=== PATIENT | female | born 1960 | race African-American/Black ===

== ENCOUNTER 2018-09-24 04:52 | Inpatient (IN) | payer MEDICARE, OTHER ==
[~2018-09-24] VITALS: Ht 165.1 cm; Wt 69.9 kg
[2018-09-24] MEDS ORDERED: ASPIRIN 81MG TABLET PO ONE ×2 (05:30→06:30)
[2018-09-24] MEDS ORDERED: ONDANSETRON HCL 4MG/2ML INJ IV ONE ×2 (06:30→08:45)
[2018-09-24 07:00] LABS: CHLORIDE 95 mEq/L (98-107)
[2018-09-24 07:01] LABS: INR 1.2; PARTIAL THROMBOPLASTIN TIME 20.6 sec (23.4-31.0); PROTHROMBIN TIME 11.6 sec (9.1-11.1)
[2018-09-24] MEDS ORDERED: FENTANYL CITRATE/PF 50MCG/ML 2ML VIAL IV ONE (07:15)
[2018-09-24] MEDS ORDERED: CLONIDINE 0.2MG TABLET PO ONE (07:45)
[2018-09-24 08:01] LABS: BASOPHILS % 0.6 % (0.0-2.0); EOSINOPHILS % 0.3 % (0.0-5.0); HEMATOCRIT. 44.6 % (36.0-48.0); LYMPHOCYTES % 9.1 % (20.0-50.0); MEAN CORPUSCULAR HEMOGLOBIN 30.8 pg (28.0-32.0); MEAN CORPUSCULAR VOLUME 91.7 fL (81.0-99.0); MONOCYTES % 4.3 % (2.0-8.0); NEUTROPHILS % 85.7 % (40.0-76.0); PLATELET 321 x1000/uL (130-400); RED BLOOD CELL COUNT 4.87 mill/uL (4.2-5.4); RED CELL DISTRIBUTION WIDTH 16.2 % (11.6-14.6)
[2018-09-24] MEDS ORDERED: HYDROMORPHONE HCL/PF 2MG/ML CPJ IV PRN (10:30)
[2018-09-24] MEDS ORDERED: NA PHOS,M-B/NA PHOS,DI-BA ENEMA 118ML PR PRN (10:30)
[2018-09-24] MEDS ORDERED: MAGNESIUM/ALUMINUM HYDROXIDE/SIMETHICONE 30ML UDC PO PRN (10:30)
[2018-09-24] MEDS ORDERED: ONDANSETRON HCL 4MG/2ML INJ IV PRN (10:30)
[2018-09-24] MEDS ORDERED: ACETAMINOPHEN 325MG TABLET PO PRN (10:30)
[2018-09-24] MEDS ORDERED: DIPHENHYDRAMINE 50MG/ML VIAL IV PRN (10:30)
[2018-09-24] MEDS ORDERED: HYDROCODONE/ACETAMINOPHEN 5/325MG TABLET PO PRN (10:30)
[2018-09-24] MEDS ORDERED: CLONIDINE 0.1MG TABLET PO PRN (10:30)
[2018-09-24] MEDS ORDERED: LORAZEPAM 2MG/ML CPJ IV PRN (10:30)
[2018-09-24] MEDS ORDERED: LOSARTAN POTASSIUM 100 MG TABLET PO SCH (11:00)
[2018-09-24] MEDS ORDERED: NIFEDIPINE XL 60MG TAB PO SCH (11:00)
[2018-09-24 11:15] VITALS: BP 159/84
[2018-09-24] MEDS ORDERED: DEXTROSE 50% WATER 50ML SYRINGE IV PRN (11:45)
[2018-09-24 11:58] VITALS: BP 159/84
[2018-09-24] MEDS: BLOOD SUGAR DIAGNOSTIC STRIP TEST SCH ×3 (12:58→21:01)
[2018-09-24] MEDS: INSULIN LISPRO 100 UNITS/ML SUBCUT SCH ×3 (13:03→21:00)
[2018-09-24] MEDS: CLONIDINE 0.1MG TABLET PO SCH ×2 (14:33→21:06)
[2018-09-24] MEDS: HYDRALAZINE HCL 50MG TABLET PO SCH ×2 (14:33→21:06)
[2018-09-24] MEDS ORDERED: CALC667C MT (15:06)
[2018-09-24] MEDS ORDERED: SEVE800T8 MT (15:06)
[2018-09-24] MEDS ORDERED: SERT-112 MT (15:14)
[2018-09-24] MEDS ORDERED: FURO80TA3 MT (15:14)
[2018-09-24] MEDS ORDERED: BUME2TAB3 MT (15:14)
[2018-09-24] MEDS ORDERED: HYDR-4135 MT (15:14)
[2018-09-24] MEDS ORDERED: LEVO100T9 MT (15:14)
[2018-09-24] MEDS ORDERED: BRIM5DRO6 EACHEYE (15:14)
[2018-09-24] MEDS ORDERED: FAMO20TA8 MT (15:14)
[2018-09-24] MEDS ORDERED: TIOT4MIS3 IH (15:14)
[2018-09-24] MEDS ORDERED: ATOR40TA70 MT (15:14)
[2018-09-24] MEDS ORDERED: PRED5DRO22 OP (15:23)
[2018-09-24] MEDS ORDERED: KETO5DRO80 LEFTEYE (15:23)
[2018-09-24] MEDS ORDERED: OFLO5DRO3 LEFTEYE (15:23)
[2018-09-24 16:12] LABS: HEPATITIS B SURFACE ANTIGEN NEGATIVE
[2018-09-24 16:31] VITALS: BP 108/51
[2018-09-24 16:41] LABS: HEPATITIS A AB IGM NEGATIVE (NEGATIVE)
[2018-09-24 20:32] VITALS: BP 123/72
[2018-09-25 00:45] VITALS: BP 115/55
[2018-09-25 04:00] VITALS: BP 105/98
[2018-09-25] MEDS: HYDRALAZINE HCL 50MG TABLET PO SCH (05:33)
[2018-09-25] MEDS: CLONIDINE 0.1MG TABLET PO SCH (05:34)
[2018-09-25 06:53] LABS: EOSINOPHILS % 0.4 % (0.0-5.0); HEMATOCRIT. 39.7 % (36.0-48.0); HEMOGLOBIN. 13.4 g/dL (12.0-16.0); LYMPHOCYTES % 13.2 % (20.0-50.0); MEAN CORPUSCULAR VOLUME 91.7 fL (81.0-99.0); MEAN PLATELET VOLUME 7.7 fl (7.4-10.4); MONOCYTES % 8.1 % (2.0-8.0); NEUTROPHILS % 77.3 % (40.0-76.0); PLATELET 297 x1000/uL (130-400); RED BLOOD CELL COUNT 4.33 mill/uL (4.2-5.4); RED CELL DISTRIBUTION WIDTH 15.8 % (11.6-14.6)
[2018-09-25 07:15] LABS: CHLORIDE 97 mEq/L (98-107)
[2018-09-25 07:26] LABS: LDL CHOLESTEROL 40 mg/dL (5-100)
[2018-09-25 07:27] LABS: HDL CHOLESTEROL 56 mg/dL (40-59); T4 FREE 0.58 ng/dL (0.76-1.46)
[2018-09-25 08:21] VITALS: BP 118/62
[2018-09-25] MEDS ORDERED: ASPIRIN 81MG EC TABLET PO SCH (09:00)
== END 2018-09-25 08:40 | disposition left against medical advice (07) | DRG 70 ==
LOC: ER 04:52 → 6WST 06:47 → EDBEDREQ 08:59 → ENRESERV 09:53
PROVIDERS: ADMIT Internal Medicine; ATTEND Internal Medicine
DX: G93.41 Metabolic encephalopathy (principal); N18.6 End stage renal disease; I13.2 Hypertensive heart and chronic kidney disease with heart failure and with stage 5 chronic kidney disease, or end stage renal disease; E46 Unspecified protein-calorie malnutrition; R10.9 Unspecified abdominal pain; R53.1 Weakness; R07.89 Other chest pain; D64.9 Anemia, unspecified; E11.22 Type 2 diabetes mellitus with diabetic chronic kidney disease; Z53.21 Procedure and treatment not carried out due to patient leaving prior to being seen by health care provider; E11.65 Type 2 diabetes mellitus with hyperglycemia; R74.0 Nonspecific elevation of levels of transaminase and lactic acid dehydrogenase [LDH]; F17.200 Nicotine dependence, unspecified, uncomplicated; I25.10 Atherosclerotic heart disease of native coronary artery without angina pectoris; Z99.2 Dependence on renal dialysis; I50.9 Heart failure, unspecified; Z88.2 Allergy status to sulfonamides; Z88.8 Allergy status to other drugs, medicaments and biological substances; Z91.041 Radiographic dye allergy status; Z90.49 Acquired absence of other specified parts of digestive tract; Z68.25 Body mass index [BMI] 25.0-25.9, adult
CPT/HCPCS: 36415; 71045; 76705; 80048; 80061; 82962; 83036; 83735; 83880; 84439; 84443; 84484; 86705; 86709; 86803; 87340; 93005; 96374; 96375; 96376; 99285; J1815; J2405; J3010

== ENCOUNTER 2018-12-08 18:03 | Inpatient (IN) | payer OTHER, MEDICARE, MEDICAID ==
[~2018-12-08] VITALS: Ht 167.6 cm; Wt 64.4 kg
[~2018-12-08 18:03] MED LIST: ATOR40TA70 MT; BRIM5DRO6 EACHEYE; BUME2TAB3 MT; CALC667C MT; FAMO20TA8 MT; FURO80TA3 MT; HYDR-4135 MT; KETO5DRO80 LEFTEYE; LEVO100T9 MT; OFLO5DRO3 LEFTEYE; PRED5DRO22 OP; SERT-112 MT; SEVE800T8 MT; TIOT4MIS3 IH
[2018-12-08] MEDS ORDERED: HYDRALAZINE 20MG/ML VIAL IV ONE (20:30)
[2018-12-08] MEDS ORDERED: LORAZEPAM 2MG/ML CPJ IV ONE ×2 (21:45→23:30)
[2018-12-08 21:59] LABS: BG BASE EXCESS 14.3 mmol/L (-2.0-2.0); BG CARBOXYHEMOGLOBIN 2.8 % (0.5-1.5); BG DEOXYHEMOGLOBIN 10.5 % (0.0-5.0); BG FRACTION INSPIRED OXYGEN 21; BG HCO3 ACT 37.8 mmol/L (22.0-26.0); BG METHEMOGLOBIN 0.2 % (0.0-1.5); BG OXYGEN SATURATION 89.2 % (92.0-98.5); BG OXYHEMOGLOBIN 86.5 % (94.0-97.0); BG PCO2 41.9 mmHg (35.0-45.0); BG PH 7.573 (7.350-7.450); BG PO2 56.8 mmHg (75.0-100.0); BG SAMPLE SITE RIGHT RADIAL; BG TOTAL HEMOGLOBIN 14.5 g/dL (12.0-18.0); BG VENT MODE ROOM AIR
[2018-12-08 22:17] LABS: BASOPHILS % 0.6 % (0.0-2.0); HEMATOCRIT. 46.2 % (36.0-48.0); HEMOGLOBIN. 14.9 g/dL (12.0-16.0); LYMPHOCYTES % 7.2 % (20.0-50.0); MEAN PLATELET VOLUME 9.4 fl (7.4-10.4); NEUTROPHILS % 87.2 % (40.0-76.0); PLATELET 276 x1000/uL (130-400); RED BLOOD CELL COUNT 4.97 mill/uL (4.2-5.4); RED CELL DISTRIBUTION WIDTH 18.3 % (11.6-14.6)
[2018-12-08 22:24] LABS: CHLORIDE 84 mEq/L (98-107); INR 1.5; PARTIAL THROMBOPLASTIN TIME 21.2 sec (23.4-31.0)
[2018-12-08 22:28] LABS: ETHANOL BLOOD < 10 mg/dL
[2018-12-08 22:29] LABS: PHOSPHORUS 6.5 mg/dL (2.5-4.9)
[2018-12-09] VITALS (7 sets, daily range): BP systolic 175–193; BP diastolic 96–115
[2018-12-09] MEDS ORDERED: LORAZEPAM 2MG/ML CPJ IV ONE ×2 (00:15→00:45)
[2018-12-09] MEDS ORDERED: OLANZAPINE 10 MG/VIAL IM ONE (00:30)
[2018-12-09] MEDS ORDERED: LABETALOL 5MG/ML SYR 20 MG/4 ML SYRINGE IV ONE (01:45)
[2018-12-09 02:05] LABS: CLARITY URINE CLEAR (CLEAR); COLOR URINE YELLOW (YELLOW); KETONES URINE NEGATIVE (NEGATIVE); LEUKOCYTE ESTERASE URINE NEGATIVE (NEGATIVE); NITRITE URINE NEGATIVE (NEGATIVE); OCCULT BLOOD URINE 1+ (NEGATIVE); PH URINE >=9.0 (4.5-8.0); PROTEIN URINE 3+ (NEGATIVE); SPECIFIC GRAVITY URINE 1.013 (1.005-1.030)
[2018-12-09 02:15] LABS: *AMPHETAMINES SCREEN URINE NEGATIVE (NEGATIVE); *BARBITURATES SCREEN URINE NEGATIVE (NEGATIVE); *BENZODIAZEPINES SCREEN URINE NEGATIVE (NEGATIVE); *COCAINE SCREEN URINE NEGATIVE (NEGATIVE); CANNABINOID URINE SCREEN NEGATIVE (NEGATIVE); METHADONE URINE SCREEN NEGATIVE (NEGATIVE); OPIATES URINE SCREEN NEGATIVE (NEGATIVE); PHENCYCLIDINE URINE SCREEN NEGATIVE (NEGATIVE)
[2018-12-09] MEDS ORDERED: HYDR-4135 MT (06:18)
[2018-12-09] MEDS ORDERED: CARV3.1242 MT (06:18)
[2018-12-09] MEDS ORDERED: AMLO10TA80 MT (06:18)
[2018-12-09] MEDS ORDERED: LOPE2CAP MT (06:18)
[2018-12-09] MEDS ORDERED: HYDRALAZINE 20MG/ML VIAL IV NR (09:45)
[2018-12-09] MEDS ORDERED: HYDROCODONE/ACETAMINOPHEN 10/325MG TABLET PO PRN (10:15)
[2018-12-09] MEDS ORDERED: ACETAMINOPHEN 325MG TABLET PO PRN (10:15)
[2018-12-09] MEDS ORDERED: HYDROMORPHONE HCL/PF 2MG/ML CPJ IV PRN (10:15)
[2018-12-09] MEDS ORDERED: DOCUSATE SODIUM 100MG CAPSULE PO PRN (10:15)
[2018-12-09] MEDS ORDERED: ONDANSETRON HCL 4MG/2ML INJ IV PRN (10:15)
[2018-12-09] MEDS ORDERED: CLONIDINE 0.1MG TABLET PO PRN (10:15)
[2018-12-09] MEDS ORDERED: MAGNESIUM/ALUMINUM HYDROXIDE/SIMETHICONE 30ML UDC PO PRN (10:15)
[2018-12-09] MEDS: HYDRALAZINE 20MG/ML VIAL IV PRN ×3 (11:57→18:10)
[2018-12-09] MEDS: ASPIRIN 81MG EC TABLET PO SCH (12:00)
[2018-12-09] MEDS ORDERED: IPRATROPIUM/ALBUTEROL 0.5-3(2.5)MG/3ML NEB INH PRN (12:00)
[2018-12-09] MEDS: ENOXAPARIN 30MG/0.3ML SYR SUBCUT SCH (13:26)
[2018-12-09] MEDS: SODIUM CHLORIDE 0.9% INJ 3ML FLUSH IVF SCH ×2 (13:26→21:38)
[2018-12-09 16:52] LABS: CREATINE KINASE MB FRACTION 2.5 ng/mL (0.5-3.6)
[2018-12-09] MEDS: LACTULOSE 20G/30ML UDC PO SCH ×2 (17:01→23:41)
[2018-12-09] MEDS: DIPHENHYDRAMINE 50MG/ML VIAL IV PRN (21:35)
[2018-12-09 23:22] LABS: CREATINE KINASE MB FRACTION 2.5 ng/mL (0.5-3.6)
[2018-12-09] MEDS: AMLODIPINE 10MG TABLET PO SCH (23:40)
[2018-12-09] MEDS: CLONIDINE 0.3MG TABLET PO PRN (23:40)
[2018-12-10] VITALS (10 sets, daily range): BP systolic 109–181; BP diastolic 67–96
[2018-12-10] MEDS: SODIUM CHLORIDE 0.9% INJ 3ML FLUSH IVF SCH ×3 (05:40→21:36)
[2018-12-10] MEDS: LACTULOSE 20G/30ML UDC PO SCH ×4 (05:40→23:53)
[2018-12-10] MEDS: GUAIFENESIN 200MG/10ML SUGAR FREE UDC PO PRN (06:16)
[2018-12-10 07:01] LABS: BASOPHILS % 0.8 % (0.0-2.0); EOSINOPHILS % 0.3 % (0.0-5.0); HEMATOCRIT. 42.2 % (36.0-48.0); HEMOGLOBIN. 13.8 g/dL (12.0-16.0); LYMPHOCYTES % 8.8 % (20.0-50.0); MEAN CORPUSCULAR HEMOGLOBIN 30.2 pg (28.0-32.0); MEAN PLATELET VOLUME 8.4 fl (7.4-10.4); MONOCYTES % 6.5 % (2.0-8.0); NEUTROPHILS % 83.6 % (40.0-76.0); PLATELET 231 x1000/uL (130-400); RED BLOOD CELL COUNT 4.58 mill/uL (4.2-5.4); RED CELL DISTRIBUTION WIDTH 17.6 % (11.6-14.6)
[2018-12-10 07:02] LABS: CHLORIDE 90 mEq/L (98-107)
[2018-12-10 07:09] LABS: LDL CHOLESTEROL 50 mg/dL (5-100)
[2018-12-10 07:11] LABS: HDL CHOLESTEROL 24 mg/dL (40-59)
[2018-12-10] MEDS: AMLODIPINE 10MG TABLET PO SCH (08:58)
[2018-12-10] MEDS: ASPIRIN 81MG EC TABLET PO SCH (08:58)
[2018-12-10] MEDS: ENOXAPARIN 30MG/0.3ML SYR SUBCUT SCH (08:58)
[2018-12-10] MEDS: LEVOTHYROXINE SODIUM 50MCG TABLET PO SCH (12:55)
[2018-12-10] MEDS: HYDRALAZINE HCL 50MG TABLET PO SCH ×2 (14:00→21:35)
[2018-12-10] MEDS: IPRATROPIUM/ALBUTEROL 0.5-3(2.5)MG/3ML NEB HHN SCH ×2 (14:50→21:33)
[2018-12-10] MEDS: CARVEDILOL 3.125 MG TABLET PO SCH (21:35)
[2018-12-10] MEDS: DIPHENHYDRAMINE 50MG/ML VIAL IV PRN (23:51)
[2018-12-11] MEDS: IPRATROPIUM/ALBUTEROL 0.5-3(2.5)MG/3ML NEB HHN SCH ×4 (01:54→21:20)
[2018-12-11] MEDS: LACTULOSE 20G/30ML UDC PO SCH ×4 (05:10→23:53)
[2018-12-11] MEDS: SODIUM CHLORIDE 0.9% INJ 3ML FLUSH IVF SCH ×3 (05:10→21:24)
[2018-12-11] MEDS: HYDRALAZINE HCL 50MG TABLET PO SCH ×3 (06:00→21:21)
[2018-12-11 07:29] LABS: BASOPHILS % 0.7 % (0.0-2.0); EOSINOPHILS % 0.7 % (0.0-5.0); HEMATOCRIT. 41.2 % (36.0-48.0); HEMOGLOBIN. 13.2 g/dL (12.0-16.0); LYMPHOCYTES % 9.3 % (20.0-50.0); MEAN CORPUSCULAR HEMOGLOBIN 29.7 pg (28.0-32.0); MEAN CORPUSCULAR VOLUME 93.1 fL (81.0-99.0); MEAN PLATELET VOLUME 8.4 fl (7.4-10.4); MONOCYTES % 6.9 % (2.0-8.0); NEUTROPHILS % 82.4 % (40.0-76.0); PLATELET 204 x1000/uL (130-400); RED BLOOD CELL COUNT 4.43 mill/uL (4.2-5.4); RED CELL DISTRIBUTION WIDTH 17.7 % (11.6-14.6)
[2018-12-11 08:00] VITALS: BP 161/87
[2018-12-11] MEDS: AMLODIPINE 10MG TABLET PO SCH (08:06)
[2018-12-11] MEDS: LEVOTHYROXINE SODIUM 50MCG TABLET PO SCH (08:06)
[2018-12-11] MEDS: ASPIRIN 81MG EC TABLET PO SCH (08:06)
[2018-12-11] MEDS: CARVEDILOL 3.125 MG TABLET PO SCH ×2 (08:07→21:20)
[2018-12-11] MEDS: ENOXAPARIN 30MG/0.3ML SYR SUBCUT SCH (08:07)
[2018-12-11] MEDS ORDERED: POTASSIUM CHLORIDE 20MEQ TABLET SR PO SCH (09:15)
[2018-12-11 12:00] VITALS: BP 134/64
[2018-12-11 16:00] VITALS: BP 154/83
[2018-12-11 20:00] VITALS: BP 150/83
[2018-12-12] VITALS: BP 157/91
[2018-12-12] MEDS: LORAZEPAM 2MG/ML CPJ IV PRN (01:59)
[2018-12-12] MEDS: IPRATROPIUM/ALBUTEROL 0.5-3(2.5)MG/3ML NEB HHN SCH ×5 (02:00→21:15)
[2018-12-12 04:00] VITALS: BP 140/73
[2018-12-12] MEDS: LACTULOSE 20G/30ML UDC PO SCH ×4 (05:20→23:51)
[2018-12-12] MEDS: HYDRALAZINE HCL 50MG TABLET PO SCH ×3 (05:53→21:40)
[2018-12-12] MEDS: SODIUM CHLORIDE 0.9% INJ 3ML FLUSH IVF SCH ×3 (05:53→21:42)
[2018-12-12 08:00] VITALS: BP 156/88
[2018-12-12] MEDS: AMLODIPINE 10MG TABLET PO SCH (08:16)
[2018-12-12] MEDS: CARVEDILOL 3.125 MG TABLET PO SCH ×2 (08:16→21:40)
[2018-12-12] MEDS: ASPIRIN 81MG EC TABLET PO SCH (08:17)
[2018-12-12] MEDS: ENOXAPARIN 30MG/0.3ML SYR SUBCUT SCH (08:17)
[2018-12-12] MEDS: LEVOTHYROXINE SODIUM 50MCG TABLET PO SCH (08:17)
[2018-12-12 08:54] LABS: BASOPHILS % 0.8 % (0.0-2.0); EOSINOPHILS % 1.1 % (0.0-5.0); HEMATOCRIT. 41.4 % (36.0-48.0); HEMOGLOBIN. 13.5 g/dL (12.0-16.0); LYMPHOCYTES % 8.6 % (20.0-50.0); MEAN CORPUSCULAR HEMOGLOBIN 30.1 pg (28.0-32.0); MEAN CORPUSCULAR VOLUME 92.5 fL (81.0-99.0); MEAN PLATELET VOLUME 8.5 fl (7.4-10.4); MONOCYTES % 7.7 % (2.0-8.0); NEUTROPHILS % 81.8 % (40.0-76.0); PLATELET 218 x1000/uL (130-400); RED BLOOD CELL COUNT 4.47 mill/uL (4.2-5.4); RED CELL DISTRIBUTION WIDTH 18.1 % (11.6-14.6)
[2018-12-12 11:30] VITALS: BP 151/76
[2018-12-12 16:00] VITALS: BP 157/73
[2018-12-12] MEDS: CLONIDINE 0.3MG TABLET PO PRN (16:54)
[2018-12-12 20:00] VITALS: BP 143/82
[2018-12-13] VITALS: BP 153/78
[2018-12-13] MEDS: LORAZEPAM 2MG/ML CPJ IV PRN (01:02)
[2018-12-13] MEDS: IPRATROPIUM/ALBUTEROL 0.5-3(2.5)MG/3ML NEB HHN SCH ×4 (02:30→20:35)
[2018-12-13 04:00] VITALS: BP 132/68
[2018-12-13] MEDS: LACTULOSE 20G/30ML UDC PO SCH ×3 (05:04→17:36)
[2018-12-13] MEDS: HYDRALAZINE HCL 50MG TABLET PO SCH ×3 (06:31→23:00)
[2018-12-13] MEDS: SODIUM CHLORIDE 0.9% INJ 3ML FLUSH IVF SCH ×3 (06:31→22:55)
[2018-12-13 06:51] LABS: EOSINOPHILS % 1.3 % (0.0-5.0); HEMATOCRIT. 40.3 % (36.0-48.0); HEMOGLOBIN. 13.2 g/dL (12.0-16.0); LYMPHOCYTES % 12.8 % (20.0-50.0); MEAN CORPUSCULAR HEMOGLOBIN 30.2 pg (28.0-32.0); MEAN CORPUSCULAR VOLUME 92.4 fL (81.0-99.0); MEAN PLATELET VOLUME 8.5 fl (7.4-10.4); MONOCYTES % 9.4 % (2.0-8.0); NEUTROPHILS % 75.5 % (40.0-76.0); PLATELET 239 x1000/uL (130-400); RED BLOOD CELL COUNT 4.36 mill/uL (4.2-5.4); RED CELL DISTRIBUTION WIDTH 18.2 % (11.6-14.6)
[2018-12-13 08:00] VITALS: BP 138/99
[2018-12-13] MEDS: LEVOTHYROXINE SODIUM 50MCG TABLET PO SCH (08:53)
[2018-12-13] MEDS: CARVEDILOL 3.125 MG TABLET PO SCH ×2 (09:00→20:40)
[2018-12-13] MEDS: ASPIRIN 81MG EC TABLET PO SCH (09:00)
[2018-12-13] MEDS: AMLODIPINE 10MG TABLET PO SCH (09:00)
[2018-12-13] MEDS: ENOXAPARIN 30MG/0.3ML SYR SUBCUT SCH (09:01)
[2018-12-13 12:00] VITALS: BP 154/83
[2018-12-13 16:00] VITALS: BP 154/78
[2018-12-13 20:00] VITALS: BP 154/73
[2018-12-14] VITALS (8 sets, daily range): BP systolic 124–170; BP diastolic 61–89
[2018-12-14] MEDS: LACTULOSE 20G/30ML UDC PO SCH ×4 (00:56→18:00)
[2018-12-14] MEDS: IPRATROPIUM/ALBUTEROL 0.5-3(2.5)MG/3ML NEB HHN SCH ×5 (01:40→20:25)
[2018-12-14] MEDS: HYDRALAZINE 20MG/ML VIAL IV PRN (04:45)
[2018-12-14] MEDS: SODIUM CHLORIDE 0.9% INJ 3ML FLUSH IVF SCH ×3 (06:12→21:50)
[2018-12-14] MEDS: HYDRALAZINE HCL 50MG TABLET PO SCH ×3 (06:12→21:50)
[2018-12-14] MEDS: LEVOTHYROXINE SODIUM 50MCG TABLET PO SCH (08:52)
[2018-12-14] MEDS: CLONIDINE 0.3MG TABLET PO PRN (08:53)
[2018-12-14] MEDS: ASPIRIN 81MG EC TABLET PO SCH (08:54)
[2018-12-14] MEDS: AMLODIPINE 10MG TABLET PO SCH (08:54)
[2018-12-14] MEDS: CARVEDILOL 3.125 MG TABLET PO SCH ×2 (08:54→21:51)
[2018-12-14] MEDS: DIPHENHYDRAMINE 50MG/ML VIAL IV PRN ×2 (08:55→13:26)
[2018-12-14] MEDS: GUAIFENESIN 200MG/10ML SUGAR FREE UDC PO PRN (08:55)
[2018-12-14] MEDS: ENOXAPARIN 30MG/0.3ML SYR SUBCUT SCH (09:05)
[2018-12-14 10:11] LABS: EOSINOPHILS % 0.9 % (0.0-5.0); HEMATOCRIT. 42.8 % (36.0-48.0); HEMOGLOBIN. 14.3 g/dL (12.0-16.0); LYMPHOCYTES % 8.6 % (20.0-50.0); MEAN CORPUSCULAR HEMOGLOBIN 30.5 pg (28.0-32.0); MEAN CORPUSCULAR VOLUME 91.2 fL (81.0-99.0); MEAN PLATELET VOLUME 8.5 fl (7.4-10.4); MONOCYTES % 7.7 % (2.0-8.0); NEUTROPHILS % 81.8 % (40.0-76.0); PLATELET 275 x1000/uL (130-400); RED CELL DISTRIBUTION WIDTH 18.1 % (11.6-14.6)
[2018-12-14] MEDS ORDERED: HYDROCODONE/ACETAMINOPHEN 10/325MG TABLET PO PRN (13:30)
[2018-12-14] MEDS: HYDROMORPHONE HCL/PF 2MG/ML CPJ IV PRN ×2 (16:14→18:24)
[2018-12-15] VITALS: BP 120/62
[2018-12-15] MEDS: LACTULOSE 20G/30ML UDC PO SCH ×3 (00:36→12:16)
[2018-12-15] MEDS: IPRATROPIUM/ALBUTEROL 0.5-3(2.5)MG/3ML NEB HHN SCH ×2 (02:08→08:03)
[2018-12-15 04:03] VITALS: BP 158/84
[2018-12-15 05:25] LABS: BASOPHILS % 0.9 % (0.0-2.0); EOSINOPHILS % 1.8 % (0.0-5.0); HEMATOCRIT. 42.4 % (36.0-48.0); LYMPHOCYTES % 11.1 % (20.0-50.0); MEAN CORPUSCULAR HEMOGLOBIN 30.2 pg (28.0-32.0); MEAN CORPUSCULAR VOLUME 91.2 fL (81.0-99.0); MEAN PLATELET VOLUME 8.4 fl (7.4-10.4); MONOCYTES % 9.4 % (2.0-8.0); NEUTROPHILS % 76.8 % (40.0-76.0); PLATELET 294 x1000/uL (130-400); RED BLOOD CELL COUNT 4.65 mill/uL (4.2-5.4); RED CELL DISTRIBUTION WIDTH 17.9 % (11.6-14.6)
[2018-12-15] MEDS: HYDRALAZINE HCL 50MG TABLET PO SCH (05:52)
[2018-12-15] MEDS: SODIUM CHLORIDE 0.9% INJ 3ML FLUSH IVF SCH (05:52)
[2018-12-15 08:00] VITALS: BP 155/75
[2018-12-15 10:00] VITALS: BP 153/110
[2018-12-15 12:00] VITALS: BP 158/80
[2018-12-15] MEDS: LEVOTHYROXINE SODIUM 50MCG TABLET PO SCH (12:13)
[2018-12-15] MEDS: CARVEDILOL 3.125 MG TABLET PO SCH (12:14)
[2018-12-15] MEDS: ASPIRIN 81MG EC TABLET PO SCH (12:15)
[2018-12-15] MEDS: AMLODIPINE 10MG TABLET PO SCH (12:15)
[2018-12-15] MEDS: ENOXAPARIN 30MG/0.3ML SYR SUBCUT SCH (12:16)
[2018-12-15 13:01] VITALS: BP 159/78
== END 2018-12-15 13:30 | disposition home or self-care (01) | DRG 91 ==
LOC: ER 18:14 → 5EST 12-09 01:05 → EDBEDREQ 12-09 01:25 → EDBEDREQDT 12-09 01:25 → EDBEDREQTM 12-09 01:25 → EDBEDREQSVC 12-09 01:25 → ENRESERV 12-09 07:57
PROVIDERS: ADMIT Internal Medicine; ATTEND Internal Medicine
PROC: 5A1D70Z Performance of Urinary Filtration, Intermittent, Less than 6 Hours Per Day (ICD-10-PCS; principal; 2018-12-10)
PROC: 5A1D70Z Performance of Urinary Filtration, Intermittent, Less than 6 Hours Per Day (ICD-10-PCS; 2018-12-11)
PROC: 5A1D70Z Performance of Urinary Filtration, Intermittent, Less than 6 Hours Per Day (ICD-10-PCS; 2018-12-14)
DX: G92 Toxic encephalopathy (principal); J96.00 Acute respiratory failure, unspecified whether with hypoxia or hypercapnia; N18.6 End stage renal disease; I13.2 Hypertensive heart and chronic kidney disease with heart failure and with stage 5 chronic kidney disease, or end stage renal disease; N17.9 Acute kidney failure, unspecified; D68.9 Coagulation defect, unspecified; E72.20 Disorder of urea cycle metabolism, unspecified; I31.3 Pericardial effusion (noninflammatory); I50.42 Chronic combined systolic (congestive) and diastolic (congestive) heart failure; E46 Unspecified protein-calorie malnutrition; D64.9 Anemia, unspecified; E89.0 Postprocedural hypothyroidism; I25.10 Atherosclerotic heart disease of native coronary artery without angina pectoris; J44.9 Chronic obstructive pulmonary disease, unspecified; R74.0 Nonspecific elevation of levels of transaminase and lactic acid dehydrogenase [LDH]; I16.0 Hypertensive urgency; E11.22 Type 2 diabetes mellitus with diabetic chronic kidney disease; I73.1 Thromboangiitis obliterans [Buerger's disease]; Z90.49 Acquired absence of other specified parts of digestive tract; Z99.2 Dependence on renal dialysis; Z88.0 Allergy status to penicillin; Z88.8 Allergy status to other drugs, medicaments and biological substances; Z91.041 Radiographic dye allergy status; Z79.899 Other long term (current) drug therapy; Z85.850 Personal history of malignant neoplasm of thyroid; Z86.73 Personal history of transient ischemic attack (TIA), and cerebral infarction without residual deficits; Z68.22 Body mass index [BMI] 22.0-22.9, adult
CPT/HCPCS: 36415; 36600; 70551; 71045; 76700; 80048; 80061; 80305; 82140; 82375; 82550; 82553; 82805; 82962; 83735; 83880; 84100; 84443; 84484; 93005; 93306; 94640; 96374; 96375; 97162; 97166; 99291; A6261; J0360; J1170; J1200; J1650; J2060; J3490; J7050; J7620